=== PATIENT | male | born 1965 ===

== ENCOUNTER 2017-10-25 04:57 | Emergency (ER) | payer OTHER ==
[2017-10-25] MEDS ORDERED: Oxymetazoline 0.05% Nasal Spray (30 ml) NS STA (05:08)
--- NOTE | 2017-10-25 05:16 | C.PDOC ---
History Of Present Illness 52 year old male presents to the ED c/o of a nose bleed that started at 03:00 this morning. Patient states he was trying to put some pressure on his nose but with no relief. Patient states he is not currently taking any blood thinners. Does note that he forgot his BP medication yesterday. Patient denies trauma, injury, fall, hx of similar symptoms, headache, visual changes, other bleeding or bruising. Time Seen by Provider: 10/25/17 05:03 Chief Complaint (Nursing): ENT Problem History Per: Patient History/Exam Limitations: None Onset/Duration Of Symptoms: Hrs Current Symptoms Are (Timing): Still Present Anticoagulant/Antiplatlet Use?: No Recent Aspirin Use: No Past Medical History Reviewed: Historical Data, Nursing Documentation, Vital Signs Vital Signs: Last Vital Signs Temp 97.6 F 10/25/17 06:03 Pulse 74 10/25/17 06:03 Resp 20 10/25/17 06:03 BP 148/82 10/25/17 06:03 Pulse Ox 98 10/25/17 06:03 - Medical History PMH: Depression, HTN, Hyperlipidemia Denies: Chronic Kidney Disease Surgical History: No Surg Hx - [facility] Procedures CLOSED ENDOSCOPIC BIOPSY OF LARGE INTESTINE (06/17/13) Family History: States: Unknown Family Hx - Social History Hx Alcohol Use: Yes Hx Substance Use: No - Immunization History Hx Tetanus Toxoid Vaccination: No Hx Influenza Vaccination: Yes Hx Pneumococcal Vaccination: No Review Of Systems Constitutional: Negative for: Fever, Chills ENT: Positive for: Nose Discharge Cardiovascular: Negative for: Chest Pain Respiratory: Negative for: Cough, Shortness of Breath Gastrointestinal: Negative for: Nausea, Vomiting, Abdominal Pain Skin: Negative for: Rash Neurological: Negative for: Weakness, Numbness, Headache, Dizziness Physical Exam - Physical Exam Appears: Non-toxic, No Acute Distress Skin: Normal Color, Warm, Dry Head: Atraumatic, Normacephalic Eye(s): bilateral: Normal Inspection, EOMI Nose: No Discharge, Epistaxis, No Septal Hematoma Oral Mucosa: Moist Neck: Normal ROM, Supple Chest: Symmetrical Cardiovascular: Rhythm Regular Respiratory: Normal Breath Sounds, No Rales, No Rhonchi, No Wheezing Gastrointestinal/Abdominal: Soft, No Tenderness, No Guarding, No Rebound Extremity: Normal ROM, No Tenderness, No Deformity, No Swelling Neurological/Psych: Oriented x3, Normal Speech, Normal Cognition Gait: Steady ED Course And Treatment O2 Sat by Pulse Oximetry: 94 (On RA) Pulse Ox Interpretation: Normal Progress Note: Plan: -Afrin 1 ml NS. On re-evlauation, epistaxis resolved. Pt asymptomatic. Discussed with pt causes and prevention. Instructed to follow up with ENT in 1-2 days. Disposition - Disposition Referrals: Samuel Lala MD [Staff Provider] - Disposition: HOME/ ROUTINE Disposition Time: 05:59 Condition: STABLE Additional Instructions: Follow up with PMD/ ENT in 1-2 days. Return to ER if symptoms persist or worsen. Instructions: Nosebleeds (DC) Forms: [employer] (Vietnamese) - Clinical Impression Clinical Impression: Epistaxis - PA / [employer] / Resident Statement MD/DO has reviewed & agrees with the documentation as recorded. - Scribe Statement The provider has reviewed the documentation as recorded by the Scribe Js Martinez All medical record entries made by the Scribe were at my direction and personally dictated by me. I have reviewed the chart and agree that the record accurately reflects my personal performance of the history, physical exam, medical decision making, and the department course for this patient. I have also personally directed, reviewed, and agree with the discharge instructions and disposition.
[2017-10-25 06:03] VITALS: BP 148/82; PULSE 74; RESP 20; TEMP 97.6
[2017-10-25 06:24] VITALS: O2SAT 94
== END 2017-10-25 06:17 | disposition home or self-care (01) ==
LOC: C.ER 04:57
DX: R04.0 Epistaxis (principal)